=== PATIENT | female | born 1960 | race Asian ===

== ENCOUNTER 2019-08-25 19:03 | Emergency (ER) | payer OTHER ==
[~2019-08-25] VITALS: Ht 152.4 cm; Wt 54.4 kg
--- NOTE | 2019-08-25 19:10 | NUR ---
dr Veras at the bed side
[2019-08-25 19:11] VITALS: BP 148/80
--- NOTE | 2019-08-25 19:26 | NUR ---
Patient discharged to home in stable condition. Written and verbal after care instructions given. Patient verbalizes understanding of instruction. Pt ambulatory with a steady gait
== END 2019-08-25 19:27 | disposition home or self-care (01) ==
LOC: ER 19:18
DX: B34.9 Viral infection, unspecified (principal); R51 Headache; J02.8 Acute pharyngitis due to other specified organisms; Z20.828 Contact with and (suspected) exposure to other viral communicable diseases

== ENCOUNTER 2019-11-07 13:49 | Emergency (ER) | payer OTHER ==
[~2019-11-07] VITALS: Ht 152.4 cm; Wt 54.4 kg
[2019-11-07 13:52] VITALS: BP 134/85
--- NOTE | 2019-11-07 14:11 | NUR ---
Patient discharged to home in stable condition. Written and verbal after care instructions given. Patient verbalizes understanding of instruction.
== END 2019-11-07 14:11 | disposition home or self-care (01) ==
LOC: ER 13:49
DX: Z03.818 Encounter for observation for suspected exposure to other biological agents ruled out (principal)
CPT/HCPCS: 99283; C9803; U0003

== ENCOUNTER 2019-11-13 13:35 | Emergency (ER) | payer OTHER ==
[~2019-11-13] VITALS: Ht 152.4 cm; Wt 54.4 kg
[2019-11-13 14:44] VITALS: BP 116/83
== END 2019-11-13 14:56 | disposition home or self-care (01) ==
LOC: ER 13:37
DX: Z03.818 Encounter for observation for suspected exposure to other biological agents ruled out (principal)
CPT/HCPCS: 99283; C9803; U0003

== ENCOUNTER 2019-11-28 10:28 | Emergency (ER) | payer OTHER ==
[~2019-11-28] VITALS: Ht 152.4 cm; Wt 54.4 kg
[2019-11-28 10:37] VITALS: BP 123/82
--- NOTE | 2019-11-28 11:10 | NUR ---
COVID19 TESTING DONE & SENT TO LAB.
== END 2019-11-28 11:12 | disposition home or self-care (01) ==
LOC: ER 10:30
DX: Z03.818 Encounter for observation for suspected exposure to other biological agents ruled out (principal)
CPT/HCPCS: 99283; C9803; U0003

== ENCOUNTER 2019-12-06 19:35 | Emergency (ER) | payer OTHER ==
[~2019-12-06] VITALS: Ht 152.4 cm; Wt 54.4 kg
[2019-12-06 19:39] VITALS: BP 137/81
== END 2019-12-06 20:08 | disposition home or self-care (01) ==
LOC: ER 19:37
DX: Z20.828 Contact with and (suspected) exposure to other viral communicable diseases (principal)
CPT/HCPCS: 99283; C9803; U0003

== ENCOUNTER 2019-12-26 08:59 | Emergency (ER) | payer OTHER ==
[~2019-12-26] VITALS: Ht 152.4 cm; Wt 54.4 kg
[2019-12-26 09:10] VITALS: BP 101/47
== END 2019-12-26 09:34 | disposition home or self-care (01) ==
LOC: ER 09:02
DX: Z20.828 Contact with and (suspected) exposure to other viral communicable diseases (principal)
CPT/HCPCS: 99283; C9803; U0003

== ENCOUNTER 2020-01-02 13:34 | Emergency (ER) | payer OTHER ==
[~2020-01-02] VITALS: Ht 152.4 cm; Wt 54.4 kg
[2020-01-02 13:40] VITALS: BP 105/60
== END 2020-01-02 14:43 | disposition home or self-care (01) ==
LOC: ER 13:36
DX: Z20.828 Contact with and (suspected) exposure to other viral communicable diseases (principal)
CPT/HCPCS: 99283; C9803; U0003

== ENCOUNTER 2020-01-13 13:22 | Emergency (ER) | payer OTHER ==
[~2020-01-13] VITALS: Ht 152.4 cm; Wt 54.4 kg
[2020-01-13 13:30] VITALS: BP 128/78
--- NOTE | 2020-01-13 14:06 | NUR ---
COVID SWAB SENT.
--- NOTE | 2020-01-13 14:06 | NUR ---
Patient discharged to home in stable condition. Written and verbal after care instructions given. Patient verbalizes understanding of instruction.
== END 2020-01-13 14:07 | disposition home or self-care (01) ==
LOC: ER 13:24
DX: Z20.828 Contact with and (suspected) exposure to other viral communicable diseases (principal)
CPT/HCPCS: 99283; C9803; U0003

== ENCOUNTER 2020-01-29 11:17 | Emergency (ER) | payer OTHER ==
[~2020-01-29] VITALS: Ht 152.4 cm; Wt 54.4 kg
[2020-01-29 11:30] VITALS: BP 105/60
--- NOTE | 2020-01-29 12:11 | NUR ---
SWABBED FOR COVID19. DISCHARGED IN STABLE CONDITION. VERBALLY DISCHARGED. NO ACI PROVIDED.
== END 2020-01-29 12:14 | disposition home or self-care (01) ==
LOC: ER 11:18
DX: Z20.828 Contact with and (suspected) exposure to other viral communicable diseases (principal)
CPT/HCPCS: 99283; C9803; U0003

== ENCOUNTER 2020-02-13 09:12 | Emergency (ER) | payer OTHER ==
[~2020-02-13] VITALS: Ht 152.4 cm; Wt 54.4 kg
[2020-02-13 09:17] VITALS: BP 109/70
--- NOTE | 2020-02-13 09:47 | NUR ---
COVID SWAB SENT, Patient discharged to home in stable condition. Written and verbal after care instructions given. Patient verbalizes understanding of instruction.
== END 2020-02-13 09:48 | disposition home or self-care (01) ==
LOC: ER 09:13
DX: Z20.828 Contact with and (suspected) exposure to other viral communicable diseases (principal)
CPT/HCPCS: 99283; C9803; U0003

== ENCOUNTER 2020-02-19 10:40 | Emergency (ER) | payer OTHER ==
[~2020-02-19] VITALS: Ht 152.4 cm; Wt 54.4 kg
[2020-02-19 10:48] VITALS: BP 125/71
--- NOTE | 2020-02-19 11:21 | NUR ---
Patient discharged to home in stable condition. Written and verbal after care instructions given. Patient verbalizes understanding of instruction. Pt ambulatory with a steady gait
--- NOTE | 2020-02-19 11:21 | NUR ---
COVID SWAB DONE AND SENT TO LAB
== END 2020-02-19 11:23 | disposition home or self-care (01) ==
LOC: ER 10:46
DX: Z20.828 Contact with and (suspected) exposure to other viral communicable diseases (principal)
CPT/HCPCS: 99283; C9803; U0003

== ENCOUNTER 2020-02-26 10:29 | Emergency (ER) | payer OTHER ==
[~2020-02-26] VITALS: Ht 152.4 cm; Wt 54.4 kg
[2020-02-26 10:33] VITALS: BP 120/65
--- NOTE | 2020-02-26 11:22 | NUR ---
COVID SWAB SENT. Patient discharged to home in stable condition. Written and verbal after care instructions given. Patient verbalizes understanding of instruction.
== END 2020-02-26 11:23 | disposition home or self-care (01) ==
LOC: ER 10:32
DX: Z20.828 Contact with and (suspected) exposure to other viral communicable diseases (principal)
CPT/HCPCS: 99283; C9803; U0003

== ENCOUNTER 2020-03-04 11:42 | Emergency (ER) | payer OTHER ==
[~2020-03-04] VITALS: Ht 152.4 cm; Wt 54.4 kg
[2020-03-04 11:49] VITALS: BP 112/85
--- NOTE | 2020-03-04 12:00 | NUR ---
Patient discharged to home in stable condition. Written and verbal after care instructions given. Patient verbalizes understanding of instruction.
== END 2020-03-04 12:01 | disposition home or self-care (01) ==
LOC: ER 11:44
DX: Z20.828 Contact with and (suspected) exposure to other viral communicable diseases (principal)
CPT/HCPCS: 99283; C9803; U0003

== ENCOUNTER 2020-03-11 13:50 | Emergency (ER) | payer OTHER ==
[~2020-03-11] VITALS: Ht 152.4 cm; Wt 54.4 kg
[2020-03-11 14:21] VITALS: BP 106/64
== END 2020-03-11 15:07 | disposition home or self-care (01) ==
LOC: ER 13:53
DX: Z20.828 Contact with and (suspected) exposure to other viral communicable diseases (principal)
CPT/HCPCS: 99283; C9803; U0003

== ENCOUNTER 2020-04-02 13:57 | Emergency (ER) | payer OTHER ==
[~2020-04-02] VITALS: Ht 152.4 cm; Wt 49.9 kg
[2020-04-02 14:01] VITALS: BP 111/65
--- NOTE | 2020-04-02 14:30 | NUR ---
COVID SWAB SENT. Patient discharged to home in stable condition. Written and verbal after care instructions given. Patient verbalizes understanding of instruction.
== END 2020-04-02 14:31 | disposition home or self-care (01) ==
LOC: ER 13:58
DX: Z20.828 Contact with and (suspected) exposure to other viral communicable diseases (principal)
CPT/HCPCS: 99283; C9803; U0003

== ENCOUNTER 2020-04-09 08:37 | Emergency (ER) | payer OTHER ==
[~2020-04-09] VITALS: Ht 152.4 cm; Wt 54.4 kg
[2020-04-09 08:41] VITALS: BP 115/71
== END 2020-04-09 09:07 | disposition home or self-care (01) ==
LOC: ER 08:37
DX: Z20.828 Contact with and (suspected) exposure to other viral communicable diseases (principal)
CPT/HCPCS: 99283; C9803; U0003

== ENCOUNTER 2020-04-19 09:52 | Emergency (ER) | payer OTHER ==
[~2020-04-19] VITALS: Ht 152.4 cm; Wt 54.4 kg
[2020-04-19 10:48] VITALS: BP 131/81
--- NOTE | 2020-04-19 10:51 | NUR ---
Patient discharged to home in stable condition. Written and verbal after care instructions given. Patient verbalizes understanding of instruction.
== END 2020-04-19 10:50 | disposition home or self-care (01) ==
LOC: ER 09:53
DX: Z20.828 Contact with and (suspected) exposure to other viral communicable diseases (principal)
CPT/HCPCS: 99283; C9803; U0003